=== PATIENT | female | born 1965 | race African-American/Black ===

== ENCOUNTER 2019-04-06 08:54 | Inpatient (IN) | payer OTHER ==
[2019-04-06] VITALS (29 sets, daily range): BP systolic 118–180; BP diastolic 58–95; PULSE 78–96; RESP 10–23; Ht 162.6 cm; Wt 92.9 kg
[~2019-04-06] VITALS: Ht 162.6 cm; Wt 92.9 kg
[~2019-04-06 08:54] MED LIST: ALLO100T PO; AMLO-147 PO; CYCL10TA7 PO; DOCU-144 PO; HYDR-3601 PO; HYDR-3672 PO; LISI40TA3 PO; METF500T24 PO; METO-429 PO
[2019-04-06] MEDS ORDERED: LABETALOL HCL 20MG INJ IV PRN (10:30)
[2019-04-06] MEDS ORDERED: HYDROmorphONE 1 MG/5 ML IV SYRINGE IV PRN ×3 (10:30)
[2019-04-06] MEDS ORDERED: EPHEDrine 25 MG/5 ML SYG IV PRN (10:30)
[2019-04-06] MEDS ORDERED: INSULIN REGULAR, HUMAN 100 UNIT/1 ML 3ML VIAL SC ONE (10:30)
[2019-04-06] MEDS ORDERED: OXYCODONE/ACETAMINOPHEN (5/325) TAB PO PRN ×2 (10:30)
[2019-04-06] MEDS ORDERED: hydrALAzine 20 MG INJ IV PRN (10:30)
[2019-04-06] MEDS ORDERED: ONDANSETRON 4 MG INJ IV PRN ×2 (10:30→14:30)
[2019-04-06] MEDS ORDERED: METOCLOPRAMIDE 10 MG INJ IV PRN (10:30)
[2019-04-06] MEDS ORDERED: FENTAnyl 50 MCG/ML VIAL IV PRN ×2 (10:30)
[2019-04-06] MEDS ORDERED: BUPIVACAINE 0.5%/EPI (SDV) 10 ML INJ INJ ONE (12:18)
[2019-04-06] MEDS ORDERED: POLYMYXIN/BACITRACIN 1L IRRIG IRR ONE (12:19)
[2019-04-06] MEDS ORDERED: HEMOSTATIC MATRIX SYG ZFS ONE (12:20)
[2019-04-06] MEDS ORDERED: THROMBIN 5000 UNIT (RECOTHROM) VIAL TOP ONE (12:20)
[2019-04-06] MEDS ORDERED: GLUCAGON 1 MG INJ IM PRN (14:30)
[2019-04-06] MEDS ORDERED: BISACODYL 10 MG SUPP PR PRN (14:30)
[2019-04-06] MEDS ORDERED: HYDROmorphONE 0.5 MG/0.5 ML SYG IV PRN (14:30)
[2019-04-06] MEDS ORDERED: NALOXONE (0.4 MG/ML) INJ IV PRN (14:30)
[2019-04-06] MEDS ORDERED: ACETAMINOPHEN 325 MG TAB PO PRN (14:30)
[2019-04-06] MEDS ORDERED: PROCHLORPERAZINE 10 MG TAB PO PRN (14:30)
[2019-04-06] MEDS ORDERED: DIPHENHYDRAMINE 25 MG CAP PO PRN (14:30)
[2019-04-06] MEDS ORDERED: GLUCOSE GEL 15 GRAM TUBE BUCCAL PRN (14:30)
[2019-04-06] MEDS ORDERED: HYDROCODONE/APAP (5/325) TAB PO PRN (14:30)
[2019-04-06] MEDS ORDERED: GLUCOSE GEL 15 GRAM TUBE PO PRN ×2 (14:30)
[2019-04-06] MEDS ORDERED: DEXTROSE 50% 50 ML SYRINGE IV PRN ×2 (14:30)
[2019-04-06] MEDS: ALLOPURINOL 100 MG TAB PO SCH (16:12)
[2019-04-06] MEDS: AMLODIPINE 10 MG TAB PO SCH (16:12)
[2019-04-06] MEDS: METOPROLOL 50 MG TAB PO SCH ×2 (16:12→20:21)
[2019-04-06] MEDS: CEFAZOLIN 1 GM/50 ML (PMX) 50 ML IVPB SCH ×2 (16:13→23:24)
[2019-04-06] MEDS: HYDROCODONE/APAP (5/325) TAB PO PRN ×2 (16:56→20:18)
[2019-04-06] MEDS ORDERED: metFORMIN 500 MG TAB PO SCH (17:55)
[2019-04-06] MEDS: INSULIN ASPART [NOVOLOG] 3 ML PEN SC SCH ×2 (18:17→20:26)
[2019-04-06] MEDS: DOCUSATE SODIUM 100 MG CAP PO SCH (20:19)
[2019-04-06] MEDS: CYCLOBENZAPRINE 10 MG TAB PO PRN (23:24)
[2019-04-07] VITALS: BP 159/74; PULSE 86; RESP 20
[2019-04-07] MEDS: CEFAZOLIN 1 GM/50 ML (PMX) 50 ML IVPB SCH (05:24)
[2019-04-07] MEDS ORDERED: PANTOPRAZOLE 40 MG INJ IV SCH (06:00)
[2019-04-07 07:16] VITALS: BP 126/62; PULSE 78; RESP 14
[2019-04-07] MEDS ORDERED: metFORMIN 500 MG TAB PO SCH (07:50)
[2019-04-07] MEDS: DOCUSATE SODIUM 100 MG CAP PO SCH (08:19)
[2019-04-07] MEDS: AMLODIPINE 10 MG TAB PO SCH (08:19)
[2019-04-07] MEDS: ALLOPURINOL 100 MG TAB PO SCH (08:20)
[2019-04-07] MEDS: METOPROLOL 50 MG TAB PO SCH (08:21)
[2019-04-07] MEDS: INSULIN ASPART [NOVOLOG] 3 ML PEN SC SCH ×2 (08:24→12:29)
[2019-04-07] MEDS ORDERED: LISINOPRIL 20 MG TAB PO SCH (09:00)
[2019-04-07] MEDS: HYDROCODONE/APAP (5/325) TAB PO PRN (10:43)
[2019-04-07] MEDS: CYCLOBENZAPRINE 10 MG TAB PO PRN (13:46)
[2019-04-07 14:52] VITALS: BP 133/60; PULSE 90; RESP 16
== END 2019-04-07 16:04 | disposition home or self-care (01) | DRG 460 ==
LOC: REC 08:54 → EDSTATUS 11:00 → MS1 14:46
PROVIDERS: ADMIT Orthopaedic Surgery Orthopaedic Surgery of the Spine; ATTEND Orthopaedic Surgery Orthopaedic Surgery of the Spine
PROC: 0ST40ZZ Resection of Lumbosacral Disc, Open Approach (ICD-10-PCS; 2019-04-06)
PROC: 0SG30A0 Fusion of Lumbosacral Joint with Interbody Fusion Device, Anterior Approach, Anterior Column, Open Approach (ICD-10-PCS; principal; 2019-04-06 11:00)
DX: M51.37 Other intervertebral disc degeneration, lumbosacral region (principal); Z98.1 Arthrodesis status; I10 Essential (primary) hypertension; E11.9 Type 2 diabetes mellitus without complications
CPT/HCPCS: 72110; 82962; 86850; 86900; 86901; 86920; 88304; 97116; 97161; 97530; C1713; C9113; J0690; J1170; J1815; J2405